=== PATIENT | female | born 1965 | race Caucasian/White ===

== ENCOUNTER → 2020-01-15 13:48 | Outpatient (REF) | payer OTHER, SELFPAY | LOC: ANHLAB 13:48 | PROVIDERS: PCP Family Medicine; Visit Provider Nurse Practitioner | DX: D49.2 Neoplasm of unspecified behavior of bone, soft tissue, and skin (principal) | CPT/HCPCS: 88305 ==

== ENCOUNTER → 2020-02-25 09:08 | Outpatient (REF) | payer OTHER, SELFPAY | LOC: ANHLAB 09:08 | PROVIDERS: PCP Family Medicine; Visit Provider Nurse Practitioner | DX: C44.319 Basal cell carcinoma of skin of other parts of face (principal) | CPT/HCPCS: 88305; 88331 ==

== ENCOUNTER 2021-07-14 00:52 | Day surgery (SDC) | payer OTHER, SELFPAY ==
[2021-07-06 15:24] VITALS: BMI 28.4
[2021-07-14 07:39] VITALS: BP 150/87; PULSE 84; RESP 16; TEMP 35.9; O2SAT 98; BMI 28.0
--- NOTE | 2021-07-14 07:50 | WPDGICN ---
Assessment and Plan Assessment and plan (1) History of colon polyps: Code(s): Z86.010 - Personal history of colonic polyps Status: Acute Assessment and Plan: Patient has a history of colon polyps. Plan is for patient to have surveillance colonoscopy now and consider this a 5 year intervals in the future. GI Consult Note Consult date/time: 07/14/21 07:50 HPI: Chiquis Sparrow is a 56 year old female Presents for screening colonoscopy. Patient's current weight appetite and bowel movements are normal. She denies abdominal pain. She has had no bleeding. She does have a history of a colon polyp removed from the colon 2013. Her family history is noncontributory. She presents today for neoplasia screening. Review of Systems Review of Systems: All systems reviewed & are unremarkable except as noted in HPI and below PMFSH Surgical History Surgical History History of lumpectomy 2009 Family History Family History Father Pancreatic cancer Social History Social History Smoking status: Never smoker Alcohol intake: current Alcohol use details: occasionally Substance use: never Substance use type: does not use Living arrangements: with family Spiritual care concerns: No Meds Home Medications and Allergies Home Medications Medication Instructions Recorded Confirmed Type atorvastatin 40 mg tablet 40 mg PO DAILY tablet 01/15/20 07/14/21 History hydrochlorothiazide 12.5 mg capsule 12.5 mg PO DAILY cap 01/15/20 07/14/21 History Daily Probiotic 1 gummy PO DAILY 07/06/21 07/14/21 History One Daily Women's 1 cap PO DAILY 07/06/21 07/14/21 History calcium carbonate-vitamin D3 1 tablet PO DAILY 07/06/21 07/14/21 History [Calcium with Vitamin D] citalopram 10 mg PO DAILY 07/06/21 07/14/21 History omega-3 fatty acids-vitamin E 1 cap PO DAILY 07/06/21 07/14/21 History [Fish Oil] turmeric root extract 500 mg PO DAILY 07/06/21 07/14/21 History vitamin E 180 mg PO DAILY 07/06/21 07/14/21 History Allergies Allergy/AdvReac Type Severity Reaction Status Date / Time No Known Allergies Allergy Verified 07/14/21 07:38 Vital Signs Vital Signs - 24 hr 07/14/21 07:39 Temperature 96.6 F L Pulse Rate 84 Respiratory Rate 16 Blood Pressure 150/87 H Pulse Oximetry 98 Exam Narrative: Physical exam reveals patient to be alert. Vital signs stable. HEENT exam is unremarkable. Patient is anicteric. Lungs are clear to auscultation and percussion. Heart is without murmur or extra sounds. Abdominal exam bowel sounds are present soft nontender with no hepatosplenomegaly. Digital external rectal exam is normal.
[2021-07-14] MEDS: LACTATED RINGERS 1,000 ML 150 ML IV CONT (08:00)
--- NOTE | 2021-07-14 08:32 | P.PNAN_ITS ---
Anes - Initial Pre Proc Eval Procedure: Operation Date: 07/14/21 09:00 Proposed Procedures p Screening Colonoscopy - Akin Johnson MD Date/Time: 07/14/21 08:32 Surgeon: Akin Johnson MD Pre Op Diagnosis: hx of colon polyps, neoplasm screening Patient Data Age: 56 Gender: F Height: 1.57 m Weight: 69.6 kg Last Vital Signs Temp 96.6 F L 07/14/21 07:39 Pulse 84 07/14/21 07:39 Resp 16 07/14/21 07:39 BP 150/87 H 07/14/21 07:39 Pulse Ox 98 07/14/21 07:39 Allergies Allergy/AdvReac Type Severity Reaction Status Date / Time No Known Allergies Allergy Verified 07/14/21 07:38 Home Medications Medication Instructions Recorded Confirmed Type atorvastatin 40 mg tablet 40 mg PO DAILY tablet 01/15/20 07/14/21 History hydrochlorothiazide 12.5 mg capsule 12.5 mg PO DAILY cap 01/15/20 07/14/21 History Daily Probiotic 1 gummy PO DAILY 07/06/21 07/14/21 History One Daily Women's 1 cap PO DAILY 07/06/21 07/14/21 History calcium carbonate-vitamin D3 1 tablet PO DAILY 07/06/21 07/14/21 History [Calcium with Vitamin D] citalopram 10 mg PO DAILY 07/06/21 07/14/21 History omega-3 fatty acids-vitamin E 1 cap PO DAILY 07/06/21 07/14/21 History [Fish Oil] turmeric root extract 500 mg PO DAILY 07/06/21 07/14/21 History vitamin E 180 mg PO DAILY 07/06/21 07/14/21 History Patient hx anesthesia problems: none Family hx anesthesia problems: none Results Review: All pre-operative results and documents have been reviewed as part of the pre-operative evaluation. [facility] Surgical History Surgical History History of lumpectomy 2009 Family History Family History Father Pancreatic cancer Social History Social History Smoking status: Never smoker Alcohol intake: current Alcohol use details: occasionally Substance use: never Substance use type: does not use Living arrangements: with family Spiritual care concerns: No Anes - Eval Final PreProcedure Day of Procedure 07/14/21 08:32 Patient weight: normal Heart: regular rate and rhythm Lungs: clear to auscultation Airway: Mallampati scale class II Neurological: alert and oriented Last oral intake: >/= 8 hours ASA classification: III Emergent: no Anesthetic plan: proceed Anesthesia type and monitoring: general and standard monitoring Results Review: All pre-operative results and documents have been reviewed as part of the pre-operative evaluation. Informed Consent: The patient's anesthetic plan and its attendant risks and benefits were discussed with the patient/family/POA. Questions were solicited and answers provided to the satisfaction of the patient/family/POA.
[2021-07-14 09:04] VITALS: BP 100/57; PULSE 71; RESP 18; O2SAT 100
--- NOTE | 2021-07-14 09:05 | SUR.OPER ---
DR KNIGHT NOTIFIED SIGMOID COLON POLYP UNRETRIEVED. STATES UNDERSTANDING AND NO NEW ORDERS GIVEN.
[2021-07-14 09:14] VITALS: BP 120/78; PULSE 80; RESP 20; O2SAT 100
[2021-07-14 09:24] VITALS: BP 126/83; PULSE 78; RESP 19; O2SAT 100
== END 2021-07-14 09:28 | disposition home or self-care (01) ==
PROVIDERS: PCP Family Medicine; Visit Provider Internal Medicine Gastroenterology
PROC: 0DJD8ZZ Inspection of Lower Intestinal Tract, Via Natural or Artificial Opening Endoscopic (ICD-10-PCS; CPT 45378; principal; 2021-07-14 09:00)
DX: Z12.11 Encounter for screening for malignant neoplasm of colon (principal); D12.2 Benign neoplasm of ascending colon; K63.5 Polyp of colon; K64.8 Other hemorrhoids
CPT/HCPCS: 45385; 88305; J2704; J7120

== ENCOUNTER 2021-07-21 19:32 | Emergency (ER) | payer OTHER, SELFPAY ==
--- NOTE | ~2021-07-21 | CT_ITS ---
EXAMINATION: CT abdomen pelvis w con DATE: 07/21/2021 22:04 INDICATION: Abdominal pain since recent colonoscopy 07/14/2021 TECHNIQUE: Computed tomography (CT) of the abdomen and pelvis was performed without intravenous contr ast. Automated exposure control and iterative reconstruction technique were employed. Exam dose: 364 .98 mGy-cm total exam DLP. COMPARISON: None. FINDINGS: The lung bases are clear. Heart size is within normal range. No pericardial or pleural effu yadiel. The liver, gallbladder, bile ducts, pancreas, pancreatic duct and spleen are unremarkable. No suspicious renal mass lesion. No urinary tract calculus or hydroureteronephrosis. The urinary blad kalin, uterus and adnexal areas are unremarkable. Normal caliber of the abdominal aorta. No intraperitoneal or retroperitoneal or pelvic mass lesion or adenopathy or ascites. Normal appendix. No bowel obstruction, bowel wall thickening, pneumatosis or intraperitoneal free air. Small fat-containing umbilical hernia. Moderate degenerative disc disease L3-4 and moderately severe degenerative disc disease at L5-S1. No suspicious osteolytic or osteoblastic lesions are noted. IMPRESSION: No bowel obstruction or intraperitoneal free air Normal appendix Reviewed, dictated and finalized at [facility]. Reviewed, dictated and finalized at [facility].
[2021-07-21 19:37] VITALS: BP 163/86; PULSE 90; RESP 14; TEMP 36.5; O2SAT 99
[2021-07-21 20:43] VITALS: BP 150/91; PULSE 85; RESP 18; O2SAT 98
--- NOTE | 2021-07-21 20:48 | ED.ABDPAIN ---
HPI - Abdominal Pain General Chief Complaint: Abdominal Pain Stated Complaint: abd pain (colonoscopy 07/14) Time Seen by Provider: 07/21/21 20:43 Source: patient History of Present Illness HPI narrative: Patient presents with abdominal pain. She had a colonoscopy on the and has had persistent abdominal pain since then thought maybe it was getting better however the past day or so it got progressively worse. Her pain is mainly in her central abdomen achy/crampy, constant, radiates to her back and is associated with some nausea but no vomiting also associated with some diarrhea no blood. She talked to Dr. Johnson who performed the colonoscopy today and was referred to the ER for further evaluation Related Data Home Medications Medication Instructions Recorded Confirmed atorvastatin 40 mg tablet 40 mg PO DAILY tablet 01/15/20 07/14/21 hydrochlorothiazide 12.5 mg capsule 12.5 mg PO DAILY cap 01/15/20 07/14/21 Daily Probiotic 1 gummy PO DAILY 07/06/21 07/14/21 One Daily Women's 1 cap PO DAILY 07/06/21 07/14/21 calcium carbonate-vitamin D3 1 tablet PO DAILY 07/06/21 07/14/21 [Calcium with Vitamin D] citalopram 10 mg PO DAILY 07/06/21 07/14/21 omega-3 fatty acids-vitamin E 1 cap PO DAILY 07/06/21 07/14/21 [Fish Oil] turmeric root extract 500 mg PO DAILY 07/06/21 07/14/21 vitamin E 180 mg PO DAILY 07/06/21 07/14/21 Allergies Allergy/AdvReac Type Severity Reaction Status Date / Time No Known Allergies Allergy Verified 07/21/21 19:41 Review of Systems Review of Systems: CONSTITUTIONAL: Denies fever, chills, or sweats. EYES: Denies visual changes, redness, or discharge. ENT: Denies rhinorrhea, congestion, sore throat, or otalgia. CARDIOVASCULAR: Denies chest pain, palpitations, or edema. RESPIRATORY: Denies cough or dyspnea. GASTROINTESTINAL: Abdominal pain nausea and diarrhea GENITOURINARY: Denies dysuria or hematuria. SKIN: Denies rash or itching. MUSCULOSKELETAL: Denies back pain, joint pain, or myalgia. NEUROLOGIC: Denies headache, numbness, dizziness, or weakness. PSYCHIATRIC: Denies anxiety or depression. All systems reviewed & are unremarkable except as noted in HPI and below PMFSH Past Medical History Medical History (Updated 07/22/21 @ 00:00 by Lien Campbell) High blood pressure High cholesterol Surgical History Surgical History History of lumpectomy 2009 Family History Family History Father Pancreatic cancer Social History Social History Smoking status: Never smoker Alcohol intake: current Alcohol use details: occasionally Substance use: never Substance use type: does not use Spiritual care concerns: No Exam Narrative: GENERAL: Well-appearing, well-nourished, and in no acute distress. HEAD: Normocephalic, atraumatic. EYES: PERRLA and EOMI. ENT: Nares clear, no rhinorrhea or epistaxis. Mucous membranes moist. NECK: Supple. No masses. No JVD CHEST: Clear to auscultation. No respiratory distress. No wheezes rales or rhonchi HEART: Regular rate and rhythm. No murmur heard. Normal peripheral pulses. ABDOMEN: Mild diffuse abdominal pain, soft no rebound or guarding, nondistended. EXTREMITIES: Normal range of motion. No edema. SKIN: Warm, dry, no rash. NEURO: No focal deficits. Alert and oriented x3. PSYCH: Normal mood and affect. Course Reevaluation(s) Reevaluation #1: Patient resting comfortably results and plan reviewed with patient. Patient comfortable with outpatient plan Date: 07/21/21 Time: 23:05 Vital Signs Vital signs: Vital Signs Temperature 36.5 C 07/21/21 19:37 Pulse Rate 90 07/21/21 19:37 Respiratory Rate 14 07/21/21 19:37 Blood Pressure 163/86 H 07/21/21 19:37 Pulse Oximetry 99 07/21/21 19:37 Temperature 36.5 C 07/21/21 19:37 Pulse Rate 78 07/21/21 23:21
[2021-07-21 21:02] LABS: Basophils Percent Auto 0.3 % (0.2-1.2); Eosinophils Absolute Auto 0.1 K/mm3 (0-0.3); Hematocrit 38.1 % (37.0-47.0); Hemoglobin 12.8 g/dL (12.0-15.0); Immature Granulocyte Absolute 0.03 K/mm3 (0.00-0.031); Immature Granulocyte Percent A 0.4 % (0-0.5); Lymphocytes Absolute Auto 1.13 K/mm3 (0.9-3.2); Lymphocytes Percent Auto 16.4 % (18.3-44.2); Mean Corpuscular HGB Conc 33.6 g/dl (32-36); Mean Corpuscular Hemoglobin 30.3 pg (26-34); Mean Corpuscular Volume 90.3 fl (80-100); Monocytes Absolute Auto 0.6 K/mm3 (0.1-0.6); Neutrophils Percent Auto 72.9 % (45.5-73.1); Platelet Count Result 287 k/mm3 (150-375); Red Blood Count 4.22 M/mm3 (4.2-5.4); White Blood Count 6.9 K/mm3 (4.5-10.0)
[2021-07-21 21:12] LABS: Add Urine Microscopic? YES; Appearance Urine Cloudy (Clear); Bilirubin Urine Negative (Negative); Blood Urine 1+ (Negative); Color Urine Yellow (Yellow); Glucose Urine UA Negative (Negative); Ketones Urine Negative (Negative); Leukocyte Esterase Ur Negative LEU/UL (Negative); Mucus Urine Few /lpf; Nitrate Urine Negative (Negative); Protein Urine Negative (Negative); Specific Grav Ur 1.019 (1.001-1.035); Squamous Epithelial Cell Urine Rare /hpf (Few); Urobilinogen Urine Negative mg/dL (<2.0)
[2021-07-21 21:15] LABS: Alanine Aminotransferase 31 U/L (4-35); Albumin Level 4.7 g/dL (3.5-5.1); Alkaline Phosphatase 114 U/L (38-126); Anion Gap 10 mmol/L (8-16); Aspartate Amino Transferase 36 U/L (14-36); Bilirubin,Total 0.8 mg/dL (0.2-1.3); Blood Urea Nitrogen 11 mg/dL (7-17); Calcium 9.3 mg/dL (8.4-10.2); Carbon Dioxide 27 mmol/L (22-30); Chloride 103 mmol/L (98-107); Estimated CRCL calculation 79 ml/min; Estimated Glomerular Filt Rate > 60; Glucose 154 mg/dL (65-110); Lipase 82 U/L (23-300); Sodium 140 mmol/L (137-145)
[2021-07-21 22:06] VITALS: BP 157/88; PULSE 83; RESP 18; O2SAT 98
[2021-07-21 23:21] VITALS: BP 150/97; PULSE 78; RESP 18; O2SAT 97
== END 2021-07-21 23:17 | disposition home or self-care (01) ==
PROVIDERS: Emergency Provider Emergency Medicine; PCP Family Medicine
DX: R10.9 Unspecified abdominal pain (principal); R19.7 Diarrhea, unspecified; R11.0 Nausea; I10 Essential (primary) hypertension; E78.00 Pure hypercholesterolemia, unspecified
CPT/HCPCS: 36415; 74177; 80053; 81001; 81025; 83690; 85025; 99284; Q9967

== ENCOUNTER 2023-04-11 15:03 | Outpatient (NON) | payer OTHER, SELFPAY | END 2023-04-11 15:04 | disposition home or self-care (01) | LOC: ANHLAB 15:04 | PROVIDERS: PCP Family Medicine; Visit Provider Nurse Practitioner | DX: C44.91 Basal cell carcinoma of skin, unspecified (principal) | CPT/HCPCS: 88305; 88331 ==